=== PATIENT | female | born 1975 | race Two or more races ===

== ENCOUNTER 2023-04-11 18:44 | Emergency (ER) | payer OTHER ==
[~2023-04-11] VITALS: Ht 165.1 cm; Wt 86.2 kg
[2023-04-11] MEDS ORDERED: SYNTHROID75 MCG PO (19:11)
[2023-04-11] MEDS ORDERED: NORVASC5 MG PO (19:12)
[2023-04-11] MEDS ORDERED: COZAAR100 MG PO (19:12)
[2023-04-11] MEDS ORDERED: TOPROL XL50 M1 PO (19:12)
[2023-04-11] MEDS ORDERED: PEPCID20 MG PO (23:01)
[2023-04-11] MEDS ORDERED: ZOFRAN8 MG PO (23:01)
== END 2023-04-11 23:08 | disposition home or self-care (01) ==
LOC: ER 18:44
PROVIDERS: General Practice
DX: K29.00 Acute gastritis without bleeding (principal); I10 Essential (primary) hypertension; Z88.0 Allergy status to penicillin; Z88.8 Allergy status to other drugs, medicaments and biological substances

== ENCOUNTER 2024-03-10 13:11 | Emergency (ER) | payer OTHER ==
[~2024-03-10] VITALS: Ht 165.1 cm; Wt 90.7 kg
[~2024-03-10 13:11] MED LIST: COZAAR100 MG PO; NORVASC5 MG PO; PEPCID20 MG PO; SYNTHROID75 MCG PO; TOPROL XL50 M1 PO; ZOFRAN8 MG PO
[2024-03-10 15:46] LABS: HEMATOCRIT 38.1 % (36.0-45.00); HEMOGLOBIN 13.2 g/dL (12.0-15.00); MEAN CELL VOLUME 91.2 fL (80.00-100.00); MEAN CORPUSCULAR HEMOGLOBIN 31.5 pg (27.00-32.0); MEAN CORPUSCULAR HGB CONC 34.5 g/dl (32.0-36.0); PLATELET COUNT 283 K/uL (150-450); RED BLOOD COUNT 4.18 M/uL (4.00-6.00); RED CELL DISTRIBUTION WIDTH 13.5 % (11.5-14.5)
[2024-03-10 16:09] LABS: INR 0.99; PARTIAL THROMBOPLASTIN TIME 31.8 SECONDS (22.0-34.0); PROTHROMBIN TIME 10.4 SECONDS (9.0-11.5)
[2024-03-10 16:14] LABS: ALBUMIN 4.3 gm/dL (3.4-5.0); BILIRUBIN TOTAL 1.13 mg/dL (0.3-1.2); CALCIUM 9.2 mg/dL (8.5-10.1); CREATININE SERUM 0.78 mg/dL (0.55-1.02); GFR 79.51; GLOBULINA 3.7 G/DL (2.4-3.5); POTASSIUM 4.2 mEq/L (3.5-5.1)
[2024-03-10] MEDS ORDERED: SODIUM CHLORIDE 0.45 % 500 ML IV ONE (16:45)
== END 2024-03-10 21:49 ==
LOC: ER 13:13
PROVIDERS: Nurse Practitioner Family
DX: I77.79 Dissection of other specified artery (principal); I10 Essential (primary) hypertension; Z88.1 Allergy status to other antibiotic agents; E03.8 Other specified hypothyroidism; R07.89 Other chest pain; R20.0 Anesthesia of skin

== ENCOUNTER 2025-02-24 12:05 | Outpatient (CLI) | payer OTHER | END 2025-02-24 12:10 | disposition home or self-care (01) | LOC: TOM 12:05 | DX: H90.6 Mixed conductive and sensorineural hearing loss, bilateral (principal); H60.41 Cholesteatoma of right external ear; S19.80XA Other specified injuries of unspecified part of neck, initial encounter; X58.XXXA Exposure to other specified factors, initial encounter; Y93.9 Activity, unspecified; Y92.9 Unspecified place or not applicable; Y99.9 Unspecified external cause status ==

== ENCOUNTER 2025-04-10 12:27 | Outpatient (CLI) | payer OTHER | END 2025-04-10 12:35 | disposition home or self-care (01) | LOC: RAD 12:27 | DX: H70.11 Chronic mastoiditis, right ear (principal); Z01.818 Encounter for other preprocedural examination; H71.01 Cholesteatoma of attic, right ear; H90.11 Conductive hearing loss, unilateral, right ear, with unrestricted hearing on the contralateral side ==